=== PATIENT | female | born 1965 | race Caucasian/White ===

== ENCOUNTER 2020-06-11 03:50 | Emergency (ER) | payer OTHER ==
[~2020-06-11] VITALS: Ht 167.6 cm; Wt 61.2 kg
[~2020-06-11 03:50] MED LIST: AMOX1TAB12 PO; CELEBREX100 MG PO; INTESTINEX1 CA1 PO; KETO10TA2 PO; SKELAXIN800 MG PO; SYNTHROID125 MCG; SYNTHROID175 MCG PO
[2020-06-11] MEDS ORDERED: SYNTHROID137 MCG PO (04:00)
== END 2020-06-11 13:14 | disposition home or self-care (01) ==
LOC: ER 03:50
DX: K52.89 Other specified noninfective gastroenteritis and colitis (principal)

== ENCOUNTER 2021-01-07 10:42 | Outpatient (CLI) | payer OTHER ==
[~2021-01-07 10:42] MED LIST changes: +SYNTHROID137 MCG PO
== END 2021-01-07 11:33 | disposition home or self-care (01) ==
LOC: OFIC 805 10:42
PROVIDERS: ATTEND Otolaryngology Otology & Neurotology
DX: H92.03 Otalgia, bilateral (principal); B37.84 Candidal otitis externa